=== PATIENT | male | born 1950 | race Caucasian/White ===

== ENCOUNTER 2017-01-25 12:47 | Inpatient (IN) | payer MEDICARE, OTHER ==
[~2017-01-25] VITALS: Ht 177.8 cm; Wt 84.1 kg
--- NOTE | ~2017-01-25 | EC ---
PATIENT:MAGUI COKER DATE OF SERVICE: 01/26/17 SEX: M MEDICAL RECORD: [id number] DATE OF : [birth year] LOCATION:[facility] AGE OF PATIENT: 67 ADMISSION DATE: 01/25/17 REFERRING PHYSICIAN: INTERPRETING PHYSICIAN: MIGUEL NARVAEZ MD ECHOCARDIOGRAM REPORT ECHO CHARGES 4 ECHO COMPLETE CLINICAL DIAGNOSIS: TIA ECHOCARDIOGRAPHIC MEASUREMENTS (adult normal given) AC root (d.<3.7cm) 3.6 LV Septum d (<1.2 cm> 1.5 Valve Excursion 1.8 LV Septum (systole) 2.2 Left Atria (s.<4.0cm> 2.6 LVPW d(<1.2cm) 1.4 RV (d.<2.3cm) 2.6 LVPW (sytole) 2.2 LV diastole(<5.6CM) 5.4 MV E-F(>70mm/sec) LV systole 3.5 LVOT Diameter 2.0 MV exc.(>10mm) Est.ejection fraction (50-75%) Pericardial Effusion N DOPPLER: LVIT A 119.0 E 80.0 LA RVSP 23.0 LVOT 104 AOP1/2T 937.0 Asc. Ao 142 RVOT 62.0 RA PA 88.0 AV Gradient Peak 8.1 AV Mean 4.1 AV Area 2.1 MV Gradient Peak 6.0 MV Mean 2.0 MV Area COMMENTS: Freelance Copywriter: 1 JOLENE DUFFOE Cylinder Die Machine Operator:1 Dr. Narvaez TAPE# PACS TWO-DIMENSIONAL ECHOCARDIOGRAM WITH DOPPLER 1. Left ventricular chamber size is within normal limits. Left ventricular systolic function is normal. Overall ejection fraction is estimated at 55 percent. 2. Left atrium, right atrium, and right ventricular chamber sizes are within normal limits. 3. Valvular structures have normal structure and motion. 4. Doppler interrogation reveals mild aortic insufficiency; no other valvular insufficiency or stenosis. Pulmonary artery systolic pressure is normal estimated at 23 millimeters of mercury. ECHOCARDIOGRAM REPORT [id number] MAGUI COKER 5. No evidence of pericardial effusion or left ventricular thrombus. MIGUEL NARVAEZ MD CC: [id number] DICTATION DATE: 01/26/17 1400 [employer] DEPARTMENT: DM 01/27/17 1119 ADM IN [address] [address]
[~2017-01-25 12:47] MED LIST: ACETAMINOPHEN500 M1 PO; ANTIDEPRESSANT PO; ASPIRIN325 MG PO; BAYER CHEWABLE81 MG PO; CELEXA20 MG PO; CRESTOR10 MG PO; CYCLOBENZAPRINE10 MG PO; DEPAKOTE500 MG PO; ELAVIL10 MG PO; GLUCOPHAGE500 MG PO; HYDROCODONE-APA1 TAB PO; HYDROXYZINE HCL50 MG PO; LAMISIL250 MG PO; LISINOPRIL2.5 MG PO; OMEPRAZOLE20 M1 PO; TOPROL XL25 MG PO; TRAZODONE HCL150 MG PO; ULTRAM50 MG PO; VITAMIN D3400 UNI1 PO; ZOCOR10 MG PO; ZOCOR5 MG PO
[2017-01-25 13:44] LABS: BASOPHILS 0.2 % (0-2); EOSINOPHILS 0.4 % (0-7); HEMOGLOBIN 15.5 g/dL (13.5-17.5); IMMATURE GRANULOCYTES 0.8 % (0-5); LYMPHOCYTES 21.7 % (15-50); MCH 33.9 pg (26.0-34.0); MCHC 34.4 g/dL (31.0-37.0); MCV 98.5 fL (80.0-100.0); MEAN PLATELET VOLUME 9.3 fL (7.4-10.4); MONOCYTES 13.5 % (2-11); NEUTROPHILS 63.4 % (40-80); PLATELET COUNT 161 10x3/uL (130-400); RBC 4.57 10x6/uL (4.20-6.10); RDW 14.4 % (11.5-14.5); WBC 4.8 10x3/uL (4.8-10.8)
[2017-01-25 13:53] LABS: APTT 26.6 SECONDS (22.8-39.4); INR 1.08 (0.85-1.17); PROTIME 13.9 SECONDS (11.6-15.0)
[2017-01-25 13:58] LABS: ALBUMIN 3.7 g/dL (3.4-5.0); ANION GAP 14.9 mmol/L (8-16); BILIRUBIN - TOTAL 0.47 mg/dL (0.2-1.3); CALCIUM 8.7 mg/dL (8.5-10.1); CARBON DIOXIDE 25.5 mmol/L (21.0-32.0); CREATININE - SERUM 2.1 mg/dL (0.6-1.3); POTASSIUM - SERUM 5.4 mmol/L (3.5-5.1); PROTEIN - SERUM 7.3 g/dL (6.4-8.2)
[2017-01-25 15:55] LABS: CKMB 4.1 U/L (0.0-3.6); CREATINE KINASE 793 UL (21-232)
[2017-01-25 15:56] LABS: TROPONIN-I < 0.017 ng/mL (0.000-0.060)
--- NOTE | 2017-01-25 16:53 | NUR ---
RECEIVED TO ROOM 2230 AT THIS TIME FROM MRI VIA STRETCHER. ASSESSMENT PERFORMED. PT IS HYPOTENSIVE, SEE FLOWSHEET. PUPILS 2MM AND SLUGGISH AND PT IS VERY LETHARGIC AND HAS DIFFICULTY STAYING AWAKE. IV TO RIGHT HAND PATENT. WILL NOTIFY PHYSICIAN FOR FURTHER ORDERS.
[2017-01-25 17:39] VITALS: BP 76/52; Ht 177.8 cm; Wt 84.1 kg
--- NOTE | 2017-01-25 18:00 | NUR ---
DR. SERRANO CALLED ME AND ASKED ME TO GO AND ASSESS MR. COKER. UPON ENTERING ROOM PT. IS RESTING WITH EYES CLOSED. SLOW TO RESPOND BUT DID RESPOND AND ANSWERS QUESTIONS APPROPRIATLY. A&O X3. STAYS AWAKE WHILE TALKING WITH ME BUT REMAINS SLOW TO RESPOND. JERRY. HYPOTENSIVE. SBP IN HIGH 70'S LOW 80'S. HR 60-70. UPPER EXT WITH EQUAL STRENGTH BILATERALLY. LOWER EXT STRENGTH EQUAL BILATERALLY.HE IS NOT SURE IF HE HAD HIS MEDICINE THIS MORNING OR NOT. "I HAVE NOT HAD ANYTHING TO EAT ALL DAY". BS REPORTED BY CHRISTEL HERRERA 90. CHRISTEL IS ADDRESSING HYPOTENSION WITH DR. AGUILAR, PRIMARY. I CALLED DR. SERRANO AND UPDATED. HIM.
[2017-01-25] MEDS ORDERED: CLEOCIN HCL300 MG PO (18:01)
[2017-01-25] MEDS ORDERED: ACCUPRIL10 MG PO (18:01)
[2017-01-25] MEDS ORDERED: ZOCOR5 MG PO (18:02)
[2017-01-25] MEDS ORDERED: HYDROXYZINE HCL50 MG PO (18:03)
--- NOTE | 2017-01-25 18:07 | NUR ---
FLUID BOLUS INITIATED AT THIS TIME. BP 82/54 AND HEART RATE 69.
--- NOTE | 2017-01-25 19:10 | NUR ---
FLUID BOLUS COMPLETE AT THIS TIME. BP 84/49, PULSE 79.
[2017-01-25 20:00] VITALS: BP 85/49
[2017-01-25 23:50] LABS: CKMB 4.7 U/L (0.0-3.6); TROPONIN-I 0.018 ng/mL (0.000-0.060)
[2017-01-25 23:51] LABS: CREATINE KINASE 885 UL (21-232)
[2017-01-26] VITALS: BP 102/60
[2017-01-26 04:00] VITALS: BP 113/61
[2017-01-26 05:01] LABS: BASOPHILS 0.3 % (0-2); EOSINOPHILS 1.5 % (0-7); HEMATOCRIT 43.8 % (42.0-54.0); HEMOGLOBIN 14.7 g/dL (13.5-17.5); IMMATURE GRANULOCYTES 0.9 % (0-5); LYMPHOCYTES 21.5 % (15-50); MCH 33.5 pg (26.0-34.0); MCHC 33.6 g/dL (31.0-37.0); MCV 99.8 fL (80.0-100.0); MEAN PLATELET VOLUME 9.1 fL (7.4-10.4); MONOCYTES 13.8 % (2-11); PLATELET COUNT 137 10x3/uL (130-400); RBC 4.39 10x6/uL (4.20-6.10); RDW 14.4 % (11.5-14.5); WBC 3.3 10x3/uL (4.8-10.8)
[2017-01-26 05:32] LABS: CALC OSMOLALITY 290 mosm/kg (275-300); CALCIUM 8.2 mg/dL (8.5-10.1); CARBON DIOXIDE 30.9 mmol/L (21.0-32.0); CHLORIDE - SERUM 109 mmol/L (98-107); CHOL - HDL RATIO 5.7 ratio (2.3-4.9); CHOLESTEROL, TOTAL 137 mg/dL (0-200); CKMB 3.6 U/L (0.0-3.6); CREATINE KINASE 625 UL (21-232); CREATININE - SERUM 1.2 mg/dL (0.6-1.3); GLUCOSE 78 mg/dL (74-106); HDL CHOLESTEROL 24 mg/dL (32-96); LDL CHOLESTEROL 70 mg/dL (0-100); LDL-HDL RATIO 2.9 ratio (1.5-3.5); POTASSIUM - SERUM 4.5 mmol/L (3.5-5.1); SODIUM 145 mmol/L (136-145); TRIGLYCERIDE 219 mg/dL (30-200); TROPONIN-I 0.016 ng/mL (0.000-0.060); UREA NITROGEN 20 mg/dL (7-18); eGFR NON AFRICAN AMERICAN 64 mL/min (90-120)
--- NOTE | 2017-01-26 07:15 | NUR ---
REPORT RECEIVED FROM DISPLAY TRIMMER NURSE. CALL LIGHT IN REACH.
[2017-01-26 07:45] VITALS: BP 112/69
--- NOTE | 2017-01-26 09:24 | NUR ---
PATIENT IN LOW GARCIA POSITION RESTING WITH EYES CLOSED. RESPIRATIONS EVEN AND UNLABORED. SIDE RAILS UP X2. BED IN LOW POSITION. CALL LIGHT IN REACH.
--- NOTE | 2017-01-26 09:50 | NUR ---
ASSESSMENT COMPLETED. NEURO CHECK COMPLETED. SCDs ON. CALL LIGHT IN REACH. WILL CONTINUE WITH PLAN OF CARE.
--- NOTE | 2017-01-26 11:28 | NUR ---
WAITING FOR SPEECH THERAPIST TO EVALUATE FOR SWALLOW EVAL.
[2017-01-26 11:38] VITALS: BP 105/69
--- NOTE | 2017-01-26 11:49 | NUR ---
AM MEDS WITH SIP OF WATER. FSBS 83. WILL CALL SPEECH THERAPIST BECAUSE PATIENT IS DIABETIC AND HIS SUGAR HAS CONTINUED TO DROP.
--- NOTE | 2017-01-26 13:00 | NUR ---
CLEARED BY SPEECH THERAPIST TO EAT A REGULAR DIET.
--- NOTE | 2017-01-26 13:59 | NUR ---
Patient Name: MAGUI COKER Admission Status: ER Accout number: [id number] Admission Date: 01-25-2017 : 1950 Admission Diagnosis: Attending: IVONE Current LOS: 1 Anticipated DC Date: 01-29-2017 Planned Disposition: Home Primary Insurance: MEDICARE A & B Discharge Planning Comments: CM MET WITH PATIENT REGARDING D/C NEEDS AND PLANS. PATIENT STATED HE HAS 1 STEP TO ENTER HOME AND 1 STAIRCASE W/RAILS INSIDE HOME. PATIENT STATED HE WILL DRIVE HIMSELF HOME AT DISCHARGE. CM STATED HE IS INDEPENDENT WITH HIS CARE AND HAS A WHEELCHAIR, SHOWER CHAIR, AND GLUCOMETER AT HOME. PATIENTS PCP IS DR. ELLIS AND PHARMACY IS [facility] ON [address] PATIENT HAS NEVER HAD HOME HEALTH AND DOES NOT WANT IT. CM WILL CONTINUE TO FOLLOW PATIENT WITH D/C NEEDS AND PLANS. PCP DR. CALEB MENDOZA [address] - [phone] HECTOR DAI (FRIEND) [phone] Fire Sprinkler Service Technician: Christine Langston Is the patient Alert and Oriented? Yes 0 * How many steps to enter\exit or inside your home? STAIRCASE 0 * PCP DR. ELLIS 0 * [facility] [address] 0 * Preadmission Environment Home with Family 0 * ADLs Independent 0 * Equipment Glucometer Shower Chair Wheelchair 0 * List name and contact numbers for known caregivers / representatives who currently or will assist patient after discharge: HECTOR DAI [phone] * Community resources currently utilized None 0 * Additional services required to return to the preadmission environment? Yes 0 * Can the patient safely return to the preadmission environment? Yes 0 * Has this patient been hospitalized within the prior 30 days at any hospital? No 0 Grand Total: 0
--- NOTE | 2017-01-26 15:20 | NUR ---
NO NEEDS VOICED AT THIS TIME. CALL LIGHT IN REACH.
[2017-01-26 15:46] VITALS: BP 153/75
--- NOTE | 2017-01-26 17:09 | NUR ---
EATING REGULAR DIET AT THIS TIME. TOLERATING WELL.
--- NOTE | 2017-01-26 18:42 | NUR ---
FSBS 143 SO NO COVERAGE REQUIRED. NO OTHER CHANGES IN INITIAL ASSESSMENT. SCDs TO BLE. CALL LIGHT IN REACH. WILL CONTINUE WITH PLAN OF CARE.
--- NOTE | 2017-01-26 19:52 | NUR ---
NEURO CHECK COMPLETED, BED IN LOW POSITION, CALL LIGHT WITHIN REACH. PT VERBALIZED ON ANTIBIOTIC FOR RT EYE INFECTION AND HAS NOT WOODROW ON SINCE ADMITTED. HOT AND COLD THERAPY APPLIED WELL. WILL CALL [facility] AND SEE WHAT ANTIBIOTIC HE IS ON
[2017-01-26 20:00] VITALS: BP 114/60
--- NOTE | 2017-01-26 20:21 | NUR ---
[facility] AND SPOKE WITH MARIO, PT IS ON CLINDAMYCIN 300MG QID FOR 10 DAYS PRESCRIBED BY ISACC CAMARENA PAGED COLOR DRUM WORKER AND SPOKE TO [facility] AND WAS ADVISED TO RESTART/ COMPLETED ORDER IN PT CHART
--- NOTE | 2017-01-26 21:43 | NUR ---
PT REQUESTED HEATING PAD FOR RT EYE, GAVE PT ICE PACK WITH HOT TOWELS IN IT TO USE. BED IS IN LOW POSITION, CALL LIGHT WITHIN REACH.
[2017-01-27] VITALS: BP 118/72
--- NOTE | 2017-01-27 03:14 | NUR ---
EYES CLOSED RESPIRATIONS WITH EASE AND UNLABORED.
[2017-01-27 04:00] VITALS: BP 123/71
--- NOTE | 2017-01-27 04:11 | NUR ---
PT IS LYING IN BED ON LEFT SIDE. EVEN RISE AND FALL OF CHEST. NO DISTRESS NOTED. EYES CLOSED. BED IN LOW POSITION, CALL LIGHT WITHIN REACH
[2017-01-27 05:56] LABS: BASOPHILS 0.6 % (0-2); EOSINOPHILS 1.2 % (0-7); HEMATOCRIT 40.1 % (42.0-54.0); IMMATURE GRANULOCYTES 0.3 % (0-5); MCH 33.7 pg (26.0-34.0); MCHC 34.9 g/dL (31.0-37.0); MEAN PLATELET VOLUME 9.3 fL (7.4-10.4); MONOCYTES 15.3 % (2-11); NEUTROPHILS 67.6 % (40-80); PLATELET COUNT 138 10x3/uL (130-400); RBC 4.15 10x6/uL (4.20-6.10); RDW 13.8 % (11.5-14.5); WBC 3.2 10x3/uL (4.8-10.8)
[2017-01-27 06:11] LABS: CALC OSMOLALITY 282 mosm/kg (275-300); CALCIUM 8.1 mg/dL (8.5-10.1); CARBON DIOXIDE 28.2 mmol/L (21.0-32.0); CHLORIDE - SERUM 108 mmol/L (98-107); CREATININE - SERUM 0.9 mg/dL (0.6-1.3); GLUCOSE 84 mg/dL (74-106); SODIUM 143 mmol/L (136-145); eGFR NON AFRICAN AMERICAN 90 mL/min (90-120)
[2017-01-27 06:12] LABS: UREA NITROGEN 10 mg/dL (7-18)
[2017-01-27 06:20] LABS: MCV 96.6 fL (80.0-100.0)
--- NOTE | 2017-01-27 07:15 | NUR ---
REPORT RECEIVED FROM POWER PLANT OPERATOR APPRENTICE NURSE. CALL LIGHT IN REACH.
--- NOTE | 2017-01-27 08:59 | NUR ---
ASSESSMENT COMPLETED. NEURO CHECK WNL. SCDs TO BLE. AM MEDS ADMINISTERED. CALL LIGHT IN REACH. WILL CONTINUE WITH PLAN OF CARE.
[2017-01-27 09:05] VITALS: BP 156/86
--- NOTE | 2017-01-27 10:20 | NUR ---
NO NEEDS VOICED AT THIS TIME. CALL LIGHT IN REACH.
[2017-01-27 11:37] VITALS: BP 134/77
[2017-01-27] MEDS ORDERED: ASPIRIN325 MG PO (11:50)
--- NOTE | 2017-01-27 12:25 | NUR ---
SITTING UP IN BED WATCHING TV AND EATING LUNCH. DENIES NEEDS AT THIS TIME. SCDs STILL ON. CALL LIGHT IN REACH.
--- NOTE | 2017-01-27 14:26 | NUR ---
CM REASSESSMENT NOTE: PATIENT IS DISCHARGING TODAY. SIGNED [facility] FORM FOR [facility] AND REFERRAL SENT. [facility] AWARE OF PATIENTS D/C TODAY. PATIENT IS DRIVING HIMSELF HOME.
--- NOTE | 2017-01-27 14:27 | NUR ---
PT AOX4 RESP EVEN AND NONLABORED PT DENIES NEEDS AT THIS TIME IV TO RIGHT FOREARM PATENT AND INTACT SRX2 BED AT LOWEST SETTING CALL LIGHT WITHIN REACH WILL CONTINUE TO MONITOR
--- NOTE | 2017-01-27 15:50 | NUR ---
DC INSTRUCTIONS EXPLAINED TO PATIENT. VERBALIZED UNDERSTANDING. DC'D TO VEHICLE VIA WC WITH HIMSELF.
== END 2017-01-27 15:50 | disposition home health service (06) | DRG 315 ==
LOC: D.ER 12:47 → D.MS 15:45
PROVIDERS: Emergency Medicine; ADMIT Emergency Medicine
DX: I95.9 Hypotension, unspecified (principal); N17.9 Acute kidney failure, unspecified; F17.203 Nicotine dependence unspecified, with withdrawal; I10 Essential (primary) hypertension; E11.65 Type 2 diabetes mellitus with hyperglycemia; I25.10 Atherosclerotic heart disease of native coronary artery without angina pectoris; I25.2 Old myocardial infarction; R42 Dizziness and giddiness

== ENCOUNTER 2017-02-28 11:33 | Observation (INO) | payer MEDICARE, OTHER ==
[~2017-02-28] VITALS: Ht 177.8 cm; Wt 81.8 kg
[~2017-02-28 11:33] MED LIST changes: +ACCUPRIL10 MG PO; +CLEOCIN HCL300 MG PO
[2017-02-28 12:04] LABS: BASOPHILS 0.2 % (0-2); EOSINOPHILS 0.7 % (0-7); HEMATOCRIT 43.5 % (42.0-54.0); IMMATURE GRANULOCYTES 0.4 % (0-5); LYMPHOCYTES 11.3 % (15-50); MCH 33.3 pg (26.0-34.0); MCHC 34.5 g/dL (31.0-37.0); MCV 96.7 fL (80.0-100.0); MEAN PLATELET VOLUME 9.2 fL (7.4-10.4); MONOCYTES 13.9 % (2-11); NEUTROPHILS 73.5 % (40-80); PLATELET COUNT 146 10x3/uL (130-400); RDW 13.4 % (11.5-14.5); WBC 5.7 10x3/uL (4.8-10.8)
[2017-02-28 12:30] LABS: ALBUMIN 3.2 g/dL (3.4-5.0); ALKALINE PHOSPHATASE 79 U/L (46-116); ALT (SGPT) 15 U/L (10-68); BILIRUBIN - TOTAL 0.28 mg/dL (0.2-1.3); CALC OSMOLALITY 270 mosm/kg (275-300); CALCIUM 8.6 mg/dL (8.5-10.1); CARBON DIOXIDE 29.1 mmol/L (21.0-32.0); CHLORIDE - SERUM 102 mmol/L (98-107); CREATINE KINASE 51 UL (21-232); CREATININE - SERUM 0.9 mg/dL (0.6-1.3); GLUCOSE 87 mg/dL (74-106); MAGNESIUM - SERUM 1.7 mg/dL (1.8-2.4); PRO BNP 439 pg/mL (0-125); PROTEIN - SERUM 7.1 g/dL (6.4-8.2); SODIUM 136 mmol/L (136-145); TROPONIN-I < 0.017 ng/mL (0.000-0.060); UREA NITROGEN 13 mg/dL (7-18); eGFR NON AFRICAN AMERICAN 90 mL/min (90-120)
--- NOTE | 2017-02-28 15:33 | NUR ---
RECEIVED BACK TO ROOM 2224 FROM ER VIA . ORIENTED TO ROOM AND CALL LIGHT SYSTEM. CALL LIGHT IN REACH. FAMILY IN ROOM. WILL CONTINUE WITH PLAN OF CARE.
[2017-02-28 15:50] VITALS: BP 115/73; Ht 177.8 cm; Wt 81.8 kg
--- NOTE | 2017-02-28 17:52 | NUR ---
INCONTINENT OF STOOL. HEARING SPECIALIST STATES HE HAD IT 3 TIMES. SHOWER GIVEN TO PATIENT. PASSWORD OBTAINED AND PLACED IN COMPUTER. FAMILY IN ROOM. CALL LIGHT IN REACH.
--- NOTE | 2017-02-28 18:20 | NUR ---
URINAL GIVEN TO PATIENT FOR URINE SAMPLE. NO CHANGES IN INITIAL ASSESSMENT. CALL LIGHT IN REACH. BED ALARM ON. WILL CONTINUE WITH PLAN OF CARE.
--- NOTE | 2017-02-28 19:00 | NUR ---
BEDSIDE REPORT RECEIVED AND CARE OF PT ASSUMED. PT LYING IN HIGH GARCIA'S POSITION WATCHING TV. IV IN LEFT FA SALINE LOCKED. TELEMETRY IN PLACE AND PT READING 97 SR AT THIS ASSESSMENT.
[2017-02-28] MEDS ORDERED: SYMBICORT 80-10.2 GM INH (19:02)
[2017-02-28] MEDS ORDERED: ALBUTEROL2.5 MG/3 M INH (19:03)
[2017-02-28 19:18] LABS: APPEARANCE CLEAR (CLEAR); BILIRUBIN NEGATIVE (NEGATIVE); COLOR YELLOW (YELLOW); GLUCOSE NEGATIVE (NEGATIVE); KETONE NEGATIVE (NEGATIVE); LEUKOCYTE ESTERASE NEGATIVE (NEGATIVE); NITRITE NEGATIVE (NEGATIVE); PROTEIN NEGATIVE (NEGATIVE); SPECIFIC GRAVITY 1.015 (1.005-1.020); UROBILINOGEN NORMAL (NORMAL)
--- NOTE | 2017-02-28 19:30 | NUR ---
CALLED DR PEREZ TO RECONCILE HOME MEDICATIONS. FAXED TO PHARMACY.
[2017-02-28 19:53] VITALS: BP 105/66
--- NOTE | 2017-02-28 21:50 | NUR ---
HS SNACK OF VANILLA PUDDING GIVEN TO PT.
--- NOTE | 2017-02-28 21:52 | NUR ---
HS MEDICATIONS GIVEN. WILL CONTINUE TO MONITOR FOR NEEDS.
[2017-02-28 23:30] VITALS: BP 114/67
[2017-03-01 04:00] VITALS: BP 132/81
--- NOTE | 2017-03-01 07:05 | NUR ---
RECEIVED REPORT. ASSUMED CARE OF PATIENT. CALL LIGHT WITHIN REACH. PATIENT NOTED TO LEAN TO RIGHT SIDE. TONGUE DEVIATION SLIGHTY TO RIGHT DURING ASSESSMENT. STRONG PRINT PRODUCTION COORDINATOR. SLIGHT WEAKNESS TO RIGHT LOWER EXTREMITY DURING PUSH/PULL. ALERT/ORIENTED. DENIES NEEDS. NO DISTRESS.
[2017-03-01 08:32] VITALS: BP 123/75
--- NOTE | 2017-03-01 08:56 | NUR ---
CALLED PHARMACY AND SPOKE TO BACILIO, REQUESTED VIT D. MEDICATION IS NOT AVAILABLE AND CANNOT BE FOUND GLOBALLY. BACILIO STATED THEY WOULD BRING SOME UP FROM THE PHARMACY.
--- NOTE | 2017-03-01 09:54 | NUR ---
MEDICATED FOR PAIN TO ELBOW AT THIS TIME.
[2017-03-01 11:56] VITALS: BP 92/55
--- NOTE | 2017-03-01 14:23 | NUR ---
PATIENT SITTING IN BED WITH ATTENTION TOWARD TELEVISION. CALL LIGHT WITHIN REACH. PATIENT STATES THE MD SAID HE WOULD BE ABLE TO GO HOME TODAY AND HE EXCITED ABOUT THAT. NO DISTRESS. DENIES NEEDS AT THIS TIME.
[2017-03-01] MEDS ORDERED: PLAVIX75 MG PO (14:49)
[2017-03-01 16:42] VITALS: BP 110/92
--- NOTE | 2017-03-01 17:18 | NUR ---
1700 18 GAUGE IV REMOVED FROM LEFT FOREARM. CATHETER TIP INTACT. NO BLEEDING FROM SITE. 2X2 GAUZE APPLIED AND SECURED WITH TAPE. TOLERATED IV REMOVAL WELL. 1705 DISCHARGE INSTRUCTIONS PROVIDED TO PATIENT AND HIS MOM AND SISTER. PATIENT VERBALIZED UNDERSTANDING OF ALL INSTRUCTIONS PROVIDED INCLUDING FOLLOW UP APPT AND NEW PRESCRIPTION ESCRIBED TO [facility]. 1715 PATIENT LEFT UNIT VIA WHEELCHAIR WITH ALL PERSONAL BELONGINGS. PATIENT BEING DISCHARGED TO HOME WITH FAMILY VIA PRIVATE CARE. PATIENT LEFT UNIT IN NO DISTRESS. PATIENT THANKED THIS EGG CASER FOR CARES RENDERED.
== END 2017-03-01 17:15 | disposition home or self-care (01) ==
LOC: D.ER 11:33 → D.MS 14:07 → OBSVTIME 14:07 → D.MS 14:07
PROVIDERS: Emergency Medicine; ADMIT Family Medicine
DX: G45.9 Transient cerebral ischemic attack, unspecified (principal); R13.10 Dysphagia, unspecified; I10 Essential (primary) hypertension; I25.10 Atherosclerotic heart disease of native coronary artery without angina pectoris; E11.65 Type 2 diabetes mellitus with hyperglycemia; J44.9 Chronic obstructive pulmonary disease, unspecified; F17.203 Nicotine dependence unspecified, with withdrawal

== ENCOUNTER 2017-08-10 20:04 | Emergency (ER) | payer MEDICARE, OTHER ==
[2017-02-28 15:50] VITALS: BMI 25.8
[~2017-08-10 20:04] MED LIST changes: +ALBUTEROL2.5 MG/3 M INH; +PLAVIX75 MG PO; +SYMBICORT 80-10.2 GM INH
[2017-08-10 22:15] LABS: BASOPHILS 0.2 % (0-2); EOSINOPHILS 0 % (0-7); HEMATOCRIT 53.9 % (42.0-54.0); HEMOGLOBIN 18.9 g/dL (13.5-17.5); IMMATURE GRANULOCYTES 0.9 % (0-5); LYMPHOCYTES 6.2 % (15-50); MCH 31.9 pg (26.0-34.0); MCHC 35.1 g/dL (31.0-37.0); MEAN PLATELET VOLUME 8.6 fL (7.4-10.4); MONOCYTES 10.7 % (2-11); RBC 5.92 10x6/uL (4.20-6.10); RDW 14.4 % (11.5-14.5); WBC 6.7 10x3/uL (4.8-10.8)
[2017-08-10 22:18] LABS: PLATELET COUNT 301 10x3/uL (130-400)
[2017-08-10 22:27] LABS: ALBUMIN 3.1 g/dL (3.4-5.0); ALKALINE PHOSPHATASE 165 U/L (46-116); ALT (SGPT) 18 U/L (10-68); BILIRUBIN - TOTAL 0.34 mg/dL (0.2-1.3); CALC OSMOLALITY 268 mosm/kg (275-300); CALCIUM 8.9 mg/dL (8.5-10.1); CARBON DIOXIDE 25.5 mmol/L (21.0-32.0); CHLORIDE - SERUM 97 mmol/L (98-107); CREATININE - SERUM 0.8 mg/dL (0.6-1.3); GLUCOSE 89 mg/dL (74-106); POTASSIUM - SERUM 4.2 mmol/L (3.5-5.1); PROTEIN - SERUM 7.2 g/dL (6.4-8.2); SODIUM 135 mmol/L (136-145); UREA NITROGEN 12 mg/dL (7-18); eGFR NON AFRICAN AMERICAN > 90 mL/min (90-120)
== END 2017-08-10 22:41 | disposition home or self-care (01) ==
LOC: D.ER 20:04
PROVIDERS: Physician Assistant
DX: C49.9 Malignant neoplasm of connective and soft tissue, unspecified (principal); R51 Headache; E11.9 Type 2 diabetes mellitus without complications; M87.052 Idiopathic aseptic necrosis of left femur; M25.552 Pain in left hip; W19.XXXA Unspecified fall, initial encounter; Y93.89 Activity, other specified; Y92.019 Unspecified place in single-family (private) house as the place of occurrence of the external cause; J44.9 Chronic obstructive pulmonary disease, unspecified; F17.200 Nicotine dependence, unspecified, uncomplicated

== ENCOUNTER 2017-09-27 12:17 | Emergency (ER) | payer MEDICARE, OTHER ==
[2017-02-28 15:50] VITALS: BMI 25.8
[2017-09-27 12:53] LABS: BASOPHILS 0.2 % (0-2); EOSINOPHILS 0.2 % (0-7); HEMATOCRIT 46.9 % (42.0-54.0); HEMOGLOBIN 16.5 g/dL (13.5-17.5); IMMATURE GRANULOCYTES 0.7 % (0-5); LYMPHOCYTES 5.1 % (15-50); MCH 30.7 pg (26.0-34.0); MCHC 35.2 g/dL (31.0-37.0); MCV 87.2 fL (80.0-100.0); MEAN PLATELET VOLUME 8.7 fL (7.4-10.4); MONOCYTES 12.3 % (2-11); NEUTROPHILS 81.5 % (40-80); PLATELET COUNT 285 10x3/uL (130-400); RBC 5.38 10x6/uL (4.20-6.10); RDW 16.3 % (11.5-14.5); WBC 4.3 10x3/uL (4.8-10.8)
[2017-09-27 13:03] LABS: APPEARANCE HAZY (CLEAR); COLOR DK YELLOW (YELLOW); GLUCOSE NEGATIVE (NEGATIVE); NITRITE NEGATIVE (NEGATIVE); PROTEIN 1+ mg/dL (NEGATIVE)
[2017-09-27 13:04] LABS: BILIRUBIN NEGATIVE (NEGATIVE); KETONE NEGATIVE (NEGATIVE); UROBILINOGEN NORMAL (NORMAL)
[2017-09-27 13:07] LABS: ALKALINE PHOSPHATASE 144 U/L (46-116); ALT (SGPT) 17 U/L (10-68); BILIRUBIN - TOTAL 0.69 mg/dL (0.2-1.3); CALC OSMOLALITY 265 mosm/kg (275-300); CALCIUM 9.4 mg/dL (8.5-10.1); CARBON DIOXIDE 31.6 mmol/L (21.0-32.0); CHLORIDE - SERUM 93 mmol/L (98-107); GLUCOSE 105 mg/dL (74-106); LIPASE 192 U/L (73-393); PROTEIN - SERUM 7.2 g/dL (6.4-8.2); SODIUM 132 mmol/L (136-145); UREA NITROGEN 15 mg/dL (7-18); WHITE CELLS - URINE 0-5 /hpf (0-5); eGFR NON AFRICAN AMERICAN 79 mL/min (90-120)
[2017-09-27 13:08] LABS: BACTERIA FEW /hpf (NONE SEEN); EPITHELIAL CELLS 0-5 /hpf (0-5); HYALINE CAST OCC /lpf (NONE SEEN); RED CELLS - URINE 0-5 /hpf (0-5)
== END 2017-09-27 17:44 | disposition home or self-care (01) ==
LOC: D.ER 12:17
PROVIDERS: Emergency Medicine
DX: K29.00 Acute gastritis without bleeding (principal); L03.811 Cellulitis of head [any part, except face]; J44.9 Chronic obstructive pulmonary disease, unspecified; E11.9 Type 2 diabetes mellitus without complications; F17.200 Nicotine dependence, unspecified, uncomplicated

== ENCOUNTER 2017-11-23 05:41 | Emergency (ER) | payer MEDICARE, OTHER ==
[2017-02-28 15:50] VITALS: BMI 25.8
== END 2017-11-23 07:27 ==
LOC: D.ER 05:41
DX: I46.9 Cardiac arrest, cause unspecified (principal); J44.9 Chronic obstructive pulmonary disease, unspecified; E11.9 Type 2 diabetes mellitus without complications; I71.4 Abdominal aortic aneurysm, without rupture; I71.2 Thoracic aortic aneurysm, without rupture; C71.9 Malignant neoplasm of brain, unspecified; I44.0 Atrioventricular block, first degree; I45.10 Unspecified right bundle-branch block